=== PATIENT | male | born 1980 | race African-American/Black ===

== ENCOUNTER 2020-12-13 22:33 | Emergency (ER) | payer SELFPAY ==
[~2020-12-13] VITALS: Ht 180.3 cm; Wt 108.9 kg
== END 2020-12-13 22:55 | disposition home or self-care (01) ==
LOC: ER 22:45
DX: K04.7 Periapical abscess without sinus (principal); F17.210 Nicotine dependence, cigarettes, uncomplicated
CPT/HCPCS: 99283